=== PATIENT | female | born 1950 | race Native Hawaiian/Other Pacific Islander ===

== ENCOUNTER 2021-06-08 10:49 | Day surgery (SDC) | payer MEDICARE, MEDICAID ==
[~2021-06-08] VITALS: Ht 152.4 cm; Wt 51.2 kg
[2021-06-08] MEDS ORDERED: normal saline 1000ml 1,000 ML IV SCH (11:30)
[2021-06-08 11:35] VITALS: BP 138/57
[2021-06-08 12:19] LABS: BASOPHILS % (AUTO) 0.7 % (0-1); EOSINOPHILS # (AUTO) 0.1 X10'3 (0-0.9); EOSINOPHILS % (AUTO) 2.6 % (0-6); HEMOGLOBIN 9.9 g/dl (12.0-16.0); LYMPHOCYTES % (AUTO) 21.5 % (21-51); MEAN CORPUSCULAR HEMOGLOBIN 28.9 PG (27.0-31.0); MEAN CORPUSCULAR VOLUME 90.4 FL (78-98); MEAN PLATELET VOLUME 7.6 FL (7.4-10.4); MONOCYTES # (AUTO) 0.4 X10'3 (0-0.9); MONOCYTES % (AUTO) 8.9 % (2-12); NEUTROPHILS % (AUTO) 66.3 % (42-75); PLATELET COUNT 212 X10'3 (140-440); RED BLOOD COUNT 3.43 X10'6 (4.20-5.60); RED CELL DISTRIBUTION WIDTH 18.6 % (11.5-14.5); WHITE BLOOD COUNT 4.5 X10'3 (4.5-11.0)
[2021-06-08 12:27] LABS: ALBUMIN 3.5 G/DL (3.4-5.0); ANION GAP 12 (8-16); CALCIUM 9.6 MG/DL (8.5-10.1); CHLORIDE 105 MMOL/L (99-107); CREATININE 5.98 MG/DL (0.40-0.90); GLUCOSE 123 MG/DL (70-104); POTASSIUM 3.6 MMOL/L (3.5-5.1); SODIUM 145 MMOL/L (135-145); TOTAL CARBON DIOXIDE 28.4 MMOL/L (24-32); eGFR 7 ML/MIN
[2021-06-08 12:28] LABS: BLOOD UREA NITROGEN 38 MG/DL (7-18); BUN/CREATININE RATIO 6.4 (6.6-38.0)
[2021-06-08] MEDS ORDERED: SEVE800T8 PO (13:37)
[2021-06-08] MEDS ORDERED: ONDA4TAB6 PO (13:37)
[2021-06-08] MEDS ORDERED: fentaNYL/PF 50MCG/1 ML 2ML syringe ONE ×2 (14:19→15:05)
[2021-06-08] MEDS ORDERED: LIDOcaine 1%/PF 5ML 10 MG/ML VIAL ONE (14:19)
[2021-06-08] MEDS ORDERED: midazolam 1 mg/ML 2ml injection ONE ×2 (14:19→15:05)
[2021-06-08] MEDS ORDERED: heparin 1,000 UNITS/NS 500ml 500 ML ONE (14:19)
[2021-06-08] MEDS ORDERED: iohexol 300mg/ml 100ml inj. ONE (14:20)
[2021-06-08 16:11] VITALS: BP 138/62
[2021-06-08 16:31] VITALS: BP 121/61
[2021-06-08 16:46] VITALS: BP 114/69
== END 2021-06-08 17:15 | disposition home or self-care (01) ==
LOC: SSTAY O 10:49
PROVIDERS: ATTEND Preventive Medicine Aerospace Medicine
DX: T82.858A Stenosis of other vascular prosthetic devices, implants and grafts, initial encounter (principal); I12.9 Hypertensive chronic kidney disease with stage 1 through stage 4 chronic kidney disease, or unspecified chronic kidney disease; N18.4 Chronic kidney disease, stage 4 (severe); Z79.899 Other long term (current) drug therapy; Y83.2 Surgical operation with anastomosis, bypass or graft as the cause of abnormal reaction of the patient, or of later complication, without mention of misadventure at the time of the procedure; Y92.89 Other specified places as the place of occurrence of the external cause
CPT/HCPCS: 36901; 36907; 80048; 82948; 85025; 85610; 99152; 99153; C1725; C1769; C1894; J1644; J2250; J3010; Q9967; 36902; A6213